=== PATIENT | female | born 1995 | race Two or more races ===

== ENCOUNTER 2024-09-08 19:26 | Observation (INO) | payer MEDICAID, OTHER ==
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
== END 2024-09-08 21:20 | disposition home or self-care (01) ==
LOC: LDRP 19:26
PROVIDERS: ADMIT Obstetrics & Gynecology; ATTEND Obstetrics & Gynecology
DX: O26.893 Other specified pregnancy related conditions, third trimester (principal); R10.9 Unspecified abdominal pain; Z3A.29 29 weeks gestation of pregnancy; Z98.890 Other specified postprocedural states; Z79.899 Other long term (current) drug therapy; V43.52XA Car driver injured in collision with other type car in traffic accident, initial encounter; Y92.410 Unspecified street and highway as the place of occurrence of the external cause; Y93.89 Activity, other specified; Y99.8 Other external cause status
CPT/HCPCS: 76805; 76817; 81002; 94760; G0378

== ENCOUNTER 2024-10-20 06:30 | Observation (INO) | payer MEDICAID ==
--- NOTE | 2024-10-20 16:03 | DVH ---
BIOPHYSICAL PROFILE HISTORY: GDM Comparison Study: None TECHNIQUE: Multiple real-time grayscale sonographic images through the gravid uterus of the fetus wi th duplex Doppler color flow and M-mode spectral analysis FINDINGS: BIOPHYSICAL PROFILE: breathing score: 2 movement score: 2 tone score: 2 AYE: 13.9 cm. Total score: 8 Single live fetus in cephalic presentation. heart rate 142 beats per minute. Unremarkable placenta without previa or abruption IMPRESSION: 1. Biophysical profile score: 8/ 8, normal
[2024-10-20] MEDS ORDERED: PREN-129 OR (16:11)
--- NOTE | 2024-10-20 16:34 | DVHDS2 ---
Physician Discharge Progress N Final Diagnosis: testing for GDM, A1 Operations or Procedures: Operations or Procedures 29yo IUP@35.5wks, pt reports eating cake before coming in and was just diagnosed with GDM, A1 VSS NST reactive RN discussed appropriate GDM diet with pt. FKC/PTL precautions reviewed. Dr. Vasques consulted, agrees with POC. Laboratory Tests Test 10/20/24 15:46 Range/Units POC Glucose 146 H 70-106 mg/dl Condition on Discharge: Stable Disposition: Home Discharge Instructions: Diet: Consistent carbohydrate Activity: No Restrictions, As Tolerated Follow Up/Referral: Weekly NST/BPP Medications: see med list Follow Up Care: Specialist: f/u in 1 wk Discharge Statement: "Patient was advised to return to the ER or call 911 if any headaches, dizziness, shortness of breath, chest pain, abdominal pain, bleeding, fevers, or worsening of medical condition. Patient was counseled about treatment plan, medications, possible side effects, patient�verbalized understanding. All questions were answered to the best of my ability. This discharge took greater then 30 minutes in planning, reviewing documentation, counseling the patient, and discussing with other team members." Visit Coding OBGYN Date of Service: October 20, 2024 Billing Provider: KIM DIAZ CNM DIRECTOR OF PRODUCT MANAGEMENT Common Visit Codes: [id number] OBS CARE (HIGH) KIM DIAZ CNM October 20, 2024 16:34
== END 2024-10-20 16:30 | disposition home or self-care (01) ==
LOC: LDRP 14:58
PROVIDERS: ADMIT Obstetrics & Gynecology; ATTEND Obstetrics & Gynecology
DX: O24.419 Gestational diabetes mellitus in pregnancy, unspecified control (principal); Z3A.35 35 weeks gestation of pregnancy; Z91.040 Latex allergy status
CPT/HCPCS: 59025; 76819; 81002; 82948; 82962; 94760; G0378

== ENCOUNTER 2024-11-10 13:52 | Observation (INO) | payer MEDICAID ==
[~2024-11-10] VITALS: Ht 149.9 cm; Wt 83.0 kg
[~2024-11-10 13:52] MED LIST: PREN-129 OR
--- NOTE | 2024-11-10 15:05 | DVH ---
BIOPHYSICAL PROFILE HISTORY: GDMA1 TECHNIQUE: Multiple transabdominal real-time grayscale sonographic images through the gravid uterus of the fetus with duplex Doppler color flow and M-mode spectral analysis FINDINGS: BIOPHYSICAL PROFILE: breathing score: 2 movement score: 2 tone score: 2 Quantitative AYE score: 2 (AYE: 11.06 Cm.) Total score: 8/8 The cervix obscured by head Single live fetus in cephalic presentation. heart rate 140 beats per minute. Anterior Grade 2 placenta without previa or abruption Single live fetus at 38 weeks 5 days Biophysical profile score 8/8 corresponding to an ADRIÁN of 11/19/2024 Estimated weight not calculated g IMPRESSION: 1. Biophysical profile score: 8/8
--- NOTE | 2024-11-12 22:03 | DVHDS2 ---
Physician Discharge Progress N Final Diagnosis: gdm 38wks Operations or Procedures: Operations or Procedures nst reactive reviwed,sono Condition on Discharge: Good Disposition: Home Discharge Instructions: Diet: Consistent carbohydrate Activity: Light activity Medications: na Follow Up Care: Specialist: 1w Discharge Statement: "Patient was advised to return to the ER or call 911 if any headaches, dizziness, shortness of breath, chest pain, abdominal pain, bleeding, fevers, or worsening of medical condition. Patient was counseled about treatment plan, medications, possible side effects, patientverbalized understanding. All questions were answered to the best of my ability. This discharge took greater then 30 minutes in planning, reviewing documenta tion, counseling the patient, and discussing with other team members." Visit Coding OBGYN Date of Service: November 10, 2024 Billing Provider: ARISTIDES MENCHACA DO ANTIQUE CLOCKS REPAIRER Common Visit Codes: [id number] OBS CARE (HIGH) ANTIQUE CLOCKS REPAIRER Procedure Codes: 44739-11- NON-STRESS TEST ARISTIDES MENCHACA DO November 12, 2024 22:03
== END 2024-11-10 15:31 | disposition home or self-care (01) ==
LOC: LDRP 13:52 → UNDOADMOB 13:52 → LDRP 14:05
PROVIDERS: ADMIT Obstetrics & Gynecology; ATTEND Obstetrics & Gynecology
DX: O24.419 Gestational diabetes mellitus in pregnancy, unspecified control (principal); Z3A.38 38 weeks gestation of pregnancy; Z98.890 Other specified postprocedural states; Z79.899 Other long term (current) drug therapy
CPT/HCPCS: 59025; 76819; 81002; 82948; 82962; 94760; G0378

== ENCOUNTER 2024-11-16 14:00 | Inpatient (IN) | payer MEDICAID ==
[~2024-11-16] VITALS: Ht 149.9 cm; Wt 71.7 kg
[2024-11-16] MEDS ORDERED: LACTATED RINGER'S 1,000 ML IV SCH (14:45)
[2024-11-16] MEDS ORDERED: BUTORPHANOL TARTRATE 2 MG/1 ML VIAL IV PRN ×2 (14:45)
[2024-11-16] MEDS ORDERED: LIDOCAINE 2%HCL (LOCAL ANESTH.) INJ 20ML MDV IJ PRN (14:45)
[2024-11-16 15:23] LABS: Basophils # (auto) 0 10 ^3/uL (0-0.2); Basophils % (auto) 0.1 % (0.0-2.0); Eosinophils # (auto) 0 10 ^3/uL (0-0.8); Eosinophils % (auto) 0.2 % (0.0-7.0); Hematocrit 44.2 % (36.0-46.0); Hemoglobin 15.3 g/dL (12.2-16.2); Lymphocytes # (auto) 1.6 10 ^3/uL (0.4-5.4); Lymphocytes % (auto) 15.8 % (10.0-50.0); Mean Corpuscular Hemoglobin 31.7 pg (28.0-32.0); Mean Corpuscular Hgb Conc. 34.5 g/dL (32.0-36.0); Mean Corpuscular Volume 91.8 fL (80.0-100.0); Monocytes # (auto) 0.3 10 ^3/uL (0-1.3); Monocytes % (auto) 3.2 % (0.0-12.0); Neutrophils % (auto) 80.7 % (37.0-80.0); Platelet Count (auto) 152 10^3/uL (140-450); Red Blood Cells 4.82 10^6/uL (4.0-5.20); Red Cell Distribution Width 14.3 % (11.8-14.3); White Blood Cell 9.9 10^3/uL (4.4-10.8)
[2024-11-16 15:39] LABS: Alanine Aminotransferase 16 U/L (7-40); Albumin 4.5 g/dL (3.2-4.8); Anion Gap 10 (5-15); Aspartate Aminotransferase 25 U/L (13-40); BUN/Creatinine Ratio 14.8 (10.0-20.0); Bilirubin, Total 0.4 mg/dL (0.2-1.0); Calcium 9.4 mg/dL (8.7-10.4); Carbon Dioxide 21 mmol/L (20-31); Potassium 3.8 mmol/L (3.5-5.1); Sodium 138 mmol/L (136-145); Total Protein 7.3 g/dL (5.7-8.2)
[2024-11-16 15:43] LABS: Alkaline Phosphatase 143 U/L (46-116); Blood Urea Nitrogen 8 mg/dL (9-23); Chloride 107 mmol/L (98-107); Glucose 72 mg/dL (74-106)
[2024-11-16 15:58] LABS: INR 0.9 (0.9-1.15); Partial Thromboplastin Time 27.2 SEC (24.5-34.5); Prothrombin Time 9.6 sec (9.3-11.8)
[2024-11-16] MEDS ORDERED: LACT. RINGERS/OXYTOCIN 20UNITS 500 ML IV ONE ×2 (16:15→16:45)
[2024-11-16 16:27] LABS: Urine Bacteria FEW /hpf (None Seen); Urine Blood 2+ /uL (Negative); Urine Clarity Turbid (Clear); Urine Color Light-Yellow (Yellow); Urine Mucus FEW (None Seen); Urine Protein, UAD TRACE (Negative); Urine Specific Gravity 1.021 (1.001-1.035); Urine Squamous Epithelial Cell FEW /hpf (<5); Urine Urobilinogen Normal (Negative); Urine WBC 3 /HPF (0-5); Urine pH 5.5 (5.0-9.0)
[2024-11-16] MEDS: miSOPROStol 50 MCG per PRE-CUT 1/2 TAB PO PRN (16:29)
[2024-11-16] MEDS: PHISODERM TOP SOLN 240ML BTL TOP PRN (16:29)
[2024-11-16] MEDS: WITCH HAZEL-GLYCERIN PAD TOP PRN (16:29)
[2024-11-16] MEDS: DERMOPLAST 60ML BOTTLE TOP PRN (16:29)
[2024-11-16 16:37] LABS: Amphetamine Screen, Urine Neg (NEGATIVE); Barbiturate Scree,Urine Neg (NEGATIVE); Benzodiazephine Screen, Urine Neg (NEGATIVE); Cocaine Screen, Urine Neg (NEGATIVE)
[2024-11-16 16:38] LABS: Cannabinoid Screen, Urine Neg (NEGATIVE); Opiate Scree,Urine Neg (NEGATIVE); Phencyclidine Screen, Urine Neg (NEGATIVE)
--- NOTE | 2024-11-16 17:00 | DVHHP2 ---
OB CC & HPI Date Date of Admission: Nov 16, 2024 Patient Identification: : 1 Para: 0 EDC: Nov 19, 2024 EGA: 39.4 wks Chief Complaints: Reason for admission: induction of labor Indication for induction: other (GDMA1) Admission Nurse Assessment Rev: Yes History of Present Complaints 29yo IUP@39.4wks presents to L&D for IOL for GDMA1. Denies UCs/LOF/VB/CAST/vision changes/RUQ pain. Endorses +FM. PNC: Routine PNC at [facility] with Dr Vasques, adequate visits, PNC complicated by GDMA1. GTT elevated, dating based on LMP c/w 15wk sono, GBS negative. Past Medical History Cardiac: No pertinent Hx Pulmonary: No pertinent Hx Central Nervous System: No pertinent Hx GI: No pertinent Hx Hemotology/Oncology: No pertinent Hx Hepatobiliary: No pertinent Hx Psychiatric: No pertinent Hx Musculoskeletal: No pertinent Hx Rheumotologic: No pertinent Hx Infectious Disease: No peritnent Hx ENT: No pertinent Hx Renal/: No pertinent Hx Endocrine: No pertinent Hx Dermatology: No pertinent Hx Past Surgical History: No pertinent Hx OB History OB History Care: Good Care Ultrasounds: Normal mid trimester US Obstetrical Complications: Gestational Diabetes (GDMA1) Medical Complications: None Allergies: Coded Allergies: NO KNOWN ALLERGIES (Unverified , 11/16/24) Home Meds Reported Medications Vit W/ Ferrous Fumara () Tab, 1 OR DAILY, TAB 10/20/24 Current Medications Current Medications Medications (Trade) Dose Ordered Sig/Carlo Route PRN Reason Start Time Stop Time Status Last Admin Lactated Ringer's 1,000 ml @ 125 mls/hr Q8H IV 11/16/24 14:45 Witch Rosa (Tucks) 1 pad PRN PRN TOP PERINEAL AREA DISCOMFORT 11/16/24 14:45 11/16/24 16:29 Sodium Lauryl Sulfate (Phisoderm) 240 ml PRN PRN TOP PERINEAL AREA DISCOMFORT 11/16/24 14:45 11/16/24 16:29 Benzocaine (Dermoplast) 1 applic PRN PRN TOP PERINEAL AREA DISCOMFORT 11/16/24 14:45 11/16/24 16:29 Butorphanol Tartrate (Stadol Injection) 1 mg Q4HPRN PRN IV MODERATE PAIN (4-6 PAIN SCALE) 11/16/24 14:45 Butorphanol Tartrate (Stadol Injection) 2 mg Q4HPRN PRN IV SEVERE PAIN (7-10 PAIN SCALE) 11/16/24 14:45 Lidocaine HCl (Xylocaine) 20 ml ONCE PRN IJ PERINEAL AREA DISCOMFORT 11/16/24 14:45 Misoprostol (Cytotec) 50 mcg Q4HPRN PRN PO CERVICAL RIPENING 11/16/24 16:15 11/16/24 16:29 Family & Social History Family/Social History Past Family/Social History: Denies Blood Type: B+ Rubella: not immune RPR/VDRL: Negative GBS Status: Negative HBsAG: Negative Review of Systems Constitutional: No symptom reported Ears, Nose, & Throat: No symptom reported Eyes: No symptom reported Pulmonary/Respiratory: No symptom reported Cardiovascular: No symptom reported Gastrointestinal: No symptom reported Genitourinary: No symptom reported Musculoskeletal: No symptom reported Skin: No symptom reported Psychiatric: No symptom reported Endocrine: No symptom reported Hemotologic/Lymphatic: No symptom reported OB Admission Exam Physical Exam Vitals: VSS, see chart EFW in office today: 8lbs 1oz, vtx HEENT: TMs Normal, Fontanelles Normal, Nasal Mucosa Normal, Eyes non-injected, Oropharynx Normal, PERRLA, Moist Membranes, EOMI Heart: Rhythm Normal Lungs: Clear Abdomen: Gravid Extremities: Normal Reflexes: Normal Pelvic Exam: Done by RN Cervical Dilatation: other (1.5 cm) Effacement: 50% Station: -3 Membranes: Intact Heart Rate: 130's Accelerations: Accelerations Present Decelerations: No Decelerations Short Term Variability: Present Elder Assistant Variability: Average (6-25) Contractions on Admission: >10 Minutes Apart (occasional UCs) Intensity: Mild OB Plan Plan Admitting Diagnosis: 29yo IUP@39.4wks Induction of Labor for GDMA1 Category I EFM Intact Membranes GBS negative CNM is co-managing care with Dr. Vasques. Plan: Induction Induction Methd: Misoprostol protocol Other Plan: Admit to L&D Informed consent obtained Discussed risks, benefits, alternatives of IOL for GDMA1 with pt. Pt consents to IOL with PO cytotec. monitoring per order Routine labs ordered Pain mgmt PRN Frequent position changes in and out of bed encouraged Limit SVE unless necessary Intrauterine resuscitation PRN Anticipate CNM will consult with Dr. Vasques PRN Visit Coding OBGYN Date of Service: Nov 16, 2024 Billing Provider: KIM DIAZ CNM LEGAL DOCUMENT ASSISTANT Common Visit Codes: [id number] INP/OBS CARE (HIGH) LEGAL DOCUMENT ASSISTANT Procedure Codes: 39760-78- NON-STRESS TEST JOSEPH SWEET STUDENTMDW Nov 16, 2024 17:00
--- NOTE | 2024-11-16 21:57 | DVHPN2 ---
CNM Labor Progress Note Date and Time Seen Date Seen: Nov 16, 2024 Time Seen: 21:30 Subjective Patient reports: No new complaints Subjective Comment Pt comfortably sitting up in bed Objective Vital Signs VSS, see chart Monitoring Method Monitoring Method: External Heart Rate Heart Rate Baseline: 135 Heart Rate Variability: Moderate Presence of FHR Accelerations: Yes Presence of FHR Decelerations: No Are all 5 Components of the FH: Yes Contractions Contractions Frequency: Other (Q 1-6 min) Duration of Contraction: 80 Contractions Intensity: Mild Contractions Resting Tone: Relaxed Membranes Membranes: Intact Vaginal Exam Vag Exam Deferred: No Vaginal Exam Dilation: 1 Vaginal Exam Effacement: 50 Vaginal Exam Station: -3 Vaginal Exam Presentation: VTX Vaginal Exam Show: None Medications Medications - Pitocin: No Medications - Pain Medications: PRN Medication - Epidural: No Medication - Other s/p Cytotec PO x1 dose Lab Results Lab Results Current Medications Medications (Trade) Dose Ordered Sig/Carlo Start Time Stop Time Status Last Admin Dose Admin Lactated Ringer's 1,000 ml @ 125 mls/hr Q8H 11/16/24 14:45 Witch Rosa (Tucks) 1 pad PRN PRN 11/16/24 14:45 11/16/24 16:29 1 PAD Sodium Lauryl Sulfate (Phisoderm) 240 ml PRN PRN 11/16/24 14:45 11/16/24 16:29 240 ML Benzocaine (Dermoplast) 1 applic PRN PRN 11/16/24 14:45 11/16/24 16:29 1 APPLIC Butorphanol Tartrate (Stadol Injection) 1 mg Q4HPRN PRN 11/16/24 14:45 Butorphanol Tartrate (Stadol Injection) 2 mg Q4HPRN PRN 11/16/24 14:45 Lidocaine HCl (Xylocaine) 20 ml ONCE PRN 11/16/24 14:45 Oxytocin 500 ml @ 999 mls/hr Q31M ONCE 11/16/24 16:15 11/16/24 16:45 DC Oxytocin 500 ml @ 125 mls/hr Q4H ONCE 11/16/24 16:45 11/16/24 20:44 DC Misoprostol (Cytotec) 50 mcg Q4HPRN PRN 11/16/24 16:15 11/16/24 21:34 50 MCG Laboratory Tests Test 11/16/24 21:07 11/16/24 15:00 11/16/24 14:30 Range/Units POC Glucose 73 70-106 mg/dl White Blood Count 9.9 4.4-10.8 10^3/uL Red Blood Count 4.82 4.0-5.20 10^6/uL Hemoglobin 15.3 12.2-16.2 g/dL Hematocrit 44.2 36.0-46.0 % Mean Corpuscular Volume 91.8 80.0-100.0 fL Mean Corpuscular Hemoglobin 31.7 28.0-32.0 pg Mean Corpuscular Hemoglobin Concent 34.5 32.0-36.0 g/dL Red Cell Distribution Width 14.3 11.8-14.3 % Platelet Count 152 140-450 10^3/uL Mean Platelet Volume 9.8 6.9-10.8 fL Neutrophils (%) (Auto) 80.7 H 37.0-80.0 % Lymphocytes (%) (Auto) 15.8 10.0-50.0 % Monocytes (%) (Auto) 3.2 0.0-12.0 % Eosinophils (%) (Auto) 0.2 0.0-7.0 % Basophils (%) (Auto) 0.1 0.0-2.0 % Neutrophils # (Auto) 8.0 1.6-8.6 10 ^3/uL Lymphocytes # (Auto) 1.6 0.4-5.4 10 ^3/uL Monocytes # (Auto) 0.3 0-1.3 10 ^3/uL Eosinophils # (Auto) 0 0-0.8 10 ^3/uL Basophils # (Auto) 0 0-0.2 10 ^3/uL Nucleated Red Blood Cells 0.0 % Prothrombin Time 9.6 9.3-11.8 sec Prothrombin Time INR 0.90 0.9-1.15 Activated Partial Thromboplast Time 27.2 24.5-34.5 SEC Sodium Level 138 136-145 mmol/L Potassium Level 3.8 3.5-5.1 mmol/L Chloride Level 107 98-107 mmol/L Carbon Dioxide Level 21 20-31 mmol/L Anion Gap 10 5-15 Blood Urea Nitrogen 8 L 9-23 mg/dL Creatinine 0.54 L 0.550-1.02 mg/dL Glomerular Filtration Rate Calc 129 >90 mL/min BUN/Creatinine Ratio 14.8 10.0-20.0 Serum Glucose 72 L 74-106 mg/dL Calcium Level 9.4 8.7-10.4 mg/dL Total Bilirubin 0.4 0.2-1.0 mg/dL Aspartate Amino Transferase (AST) 25 13-40 U/L Alanine Aminotransferase (ALT) 16 7-40 U/L Alkaline Phosphatase 143 H 46-116 U/L Total Protein 7.3 5.7-8.2 g/dL Albumin 4.5 3.2-4.8 g/dL Treponema pallidum Antibody Non-reactive Negative Hepatitis C Antibody Negative Negative Urine Color Light-yellow Yellow Urine Clarity Turbid H Clear Urine pH 5.5 5.0-9.0 Urine Specific [place] 1.021 1.001-1.035 Urine Protein Trace H Negative Urine Ketones Trace Negative Urine Blood 2+ H Negative /uL Urine Nitrite Negative Negative Urine Bilirubin Negative Negative Urine Urobilinogen Normal Negative mg/dL Urine Leukocyte Esterase Negative Negative /uL Urine RBC 1 0 - 4 /hpf Urine Microscopic WBC 3 0-5 /HPF Urine Squamous Epithelial Cells Few <5 /hpf Urine Bacteria Few H None Seen /hpf Urine Mucus Few None Seen Urine Glucose Normal Normal mg/dL Urine Opiates Screen Neg NEGATIVE Urine Fentanyl Screen Neg NEGATIVE Urine Barbiturates Screen Neg NEGATIVE Urine Phencyclidine Screen Neg NEGATIVE Urine Amphetamines Screen Neg NEGATIVE Urine Benzodiazepines Screen Neg NEGATIVE Urine Cocaine Screen Neg NEGATIVE Urine Cannabinoids Screen Neg NEGATIVE Assessment Assessment 29yo IUP@39.4wks Induction of Labor for GDMA1 Category I EFM Intact Membranes GBS negative Plan Plan Continue with Cytotec PO monitoring per order Saline lock IV Pain mgmt PRN Frequent position changes in and out of bed encouraged Limit SVE unless necessary Intrauterine resuscitation PRN Anticipate CNM will consult with Dr. Vasques PRN Plan discussed with: Patient, Other (Family) Visit Coding OBGYN Date of Service: Nov 16, 2024 Billing Provider: KIM DIAZ CNM FOOD AND BEVERAGE DIRECTOR Common Visit Codes: [id number] INP/OBS CARE (HIGH) FOOD AND BEVERAGE DIRECTOR Procedure Codes: 74950-12- NON-STRESS TEST JOSEPH SWEET STUDENTMDW Nov 16, 2024 21:56
--- NOTE | 2024-11-17 02:08 | DVHPN2 ---
[facility] Labor Progress Note Date and Time Seen Date Seen: Nov 17, 2024 Time Seen: 02:05 Subjective Patient reports: No new complaints Objective Vital Signs VSS, see chart Monitoring Method Monitoring Method: External Heart Rate Heart Rate Baseline: 130 Heart Rate Variability: Moderate Presence of FHR Accelerations: Yes Presence of FHR Decelerations: No Changes in Trends of Patterns: No Are all 5 Components of the FH: Yes Contractions Contractions Frequency: Occasional Duration of Contraction: 80 Contractions Intensity: Mild Contractions Resting Tone: Relaxed Membranes Membranes: Intact Vaginal Exam Vag Exam Deferred: No (1.5/50/-3 by RN) Medications Medications - Pitocin: No Medications - Pain Medications: PRN Medication - Epidural: No Medication - Other s/p 2 doses of PO cytotec Lab Results Lab Results Current Medications Medications (Trade) Dose Ordered Sig/Carlo Start Time Stop Time Status Last Admin Dose Admin Lactated Ringer's 1,000 ml @ 125 mls/hr Q8H 11/16/24 14:45 Witch Rosa (Tucks) 1 pad PRN PRN 11/16/24 14:45 11/16/24 16:29 1 PAD Sodium Lauryl Sulfate (Phisoderm) 240 ml PRN PRN 11/16/24 14:45 11/16/24 16:29 240 ML Benzocaine (Dermoplast) 1 applic PRN PRN 11/16/24 14:45 11/16/24 16:29 1 APPLIC Butorphanol Tartrate (Stadol Injection) 1 mg Q4HPRN PRN 11/16/24 14:45 Butorphanol Tartrate (Stadol Injection) 2 mg Q4HPRN PRN 11/16/24 14:45 Lidocaine HCl (Xylocaine) 20 ml ONCE PRN 11/16/24 14:45 Oxytocin 500 ml @ 999 mls/hr Q31M ONCE 11/16/24 16:15 11/16/24 16:45 DC Oxytocin 500 ml @ 125 mls/hr Q4H ONCE 11/16/24 16:45 11/16/24 20:44 DC Misoprostol (Cytotec) 50 mcg Q4HPRN PRN 11/16/24 16:15 11/17/24 01:34 50 MCG Laboratory Tests Test 11/17/24 01:35 11/16/24 15:00 11/16/24 14:30 Range/Units POC Glucose 111 H 70-106 mg/dl White Blood Count 9.9 4.4-10.8 10^3/uL Red Blood Count 4.82 4.0-5.20 10^6/uL Hemoglobin 15.3 12.2-16.2 g/dL Hematocrit 44.2 36.0-46.0 % Mean Corpuscular Volume 91.8 80.0-100.0 fL Mean Corpuscular Hemoglobin 31.7 28.0-32.0 pg Mean Corpuscular Hemoglobin Concent 34.5 32.0-36.0 g/dL Red Cell Distribution Width 14.3 11.8-14.3 % Platelet Count 152 140-450 10^3/uL Mean Platelet Volume 9.8 6.9-10.8 fL Neutrophils (%) (Auto) 80.7 H 37.0-80.0 % Lymphocytes (%) (Auto) 15.8 10.0-50.0 % Monocytes (%) (Auto) 3.2 0.0-12.0 % Eosinophils (%) (Auto) 0.2 0.0-7.0 % Basophils (%) (Auto) 0.1 0.0-2.0 % Neutrophils # (Auto) 8.0 1.6-8.6 10 ^3/uL Lymphocytes # (Auto) 1.6 0.4-5.4 10 ^3/uL Monocytes # (Auto) 0.3 0-1.3 10 ^3/uL Eosinophils # (Auto) 0 0-0.8 10 ^3/uL Basophils # (Auto) 0 0-0.2 10 ^3/uL Nucleated Red Blood Cells 0.0 % Prothrombin Time 9.6 9.3-11.8 sec Prothrombin Time INR 0.90 0.9-1.15 Activated Partial Thromboplast Time 27.2 24.5-34.5 SEC Sodium Level 138 136-145 mmol/L Potassium Level 3.8 3.5-5.1 mmol/L Chloride Level 107 98-107 mmol/L Carbon Dioxide Level 21 20-31 mmol/L Anion Gap 10 5-15 Blood Urea Nitrogen 8 L 9-23 mg/dL Creatinine 0.54 L 0.550-1.02 mg/dL Glomerular Filtration Rate Calc 129 >90 mL/min BUN/Creatinine Ratio 14.8 10.0-20.0 Serum Glucose 72 L 74-106 mg/dL Calcium Level 9.4 8.7-10.4 mg/dL Total Bilirubin 0.4 0.2-1.0 mg/dL Aspartate Amino Transferase (AST) 25 13-40 U/L Alanine Aminotransferase (ALT) 16 7-40 U/L Alkaline Phosphatase 143 H 46-116 U/L Total Protein 7.3 5.7-8.2 g/dL Albumin 4.5 3.2-4.8 g/dL Treponema pallidum Antibody Non-reactive Negative Hepatitis C Antibody Negative Negative Urine Color Light-yellow Yellow Urine Clarity Turbid H Clear Urine pH 5.5 5.0-9.0 Urine Specific [place] 1.021 1.001-1.035 Urine Protein Trace H Negative Urine Ketones Trace Negative Urine Blood 2+ H Negative /uL Urine Nitrite Negative Negative Urine Bilirubin Negative Negative Urine Urobilinogen Normal Negative mg/dL Urine Leukocyte Esterase Negative Negative /uL Urine RBC 1 0 - 4 /hpf Urine Microscopic WBC 3 0-5 /HPF Urine Squamous Epithelial Cells Few <5 /hpf Urine Bacteria Few H None Seen /hpf Urine Mucus Few None Seen Urine Glucose Normal Normal mg/dL Urine Opiates Screen Neg NEGATIVE Urine Fentanyl Screen Neg NEGATIVE Urine Barbiturates Screen Neg NEGATIVE Urine Phencyclidine Screen Neg NEGATIVE Urine Amphetamines Screen Neg NEGATIVE Urine Benzodiazepines Screen Neg NEGATIVE Urine Cocaine Screen Neg NEGATIVE Urine Cannabinoids Screen Neg NEGATIVE Assessment Assessment 29yo IUP@39.5wks Induction of Labor for GDMA1 Category I EFM Intact Membranes GBS negative Plan Plan Continue with Cytotec PO monitoring per order Saline lock IV Continue blood glucose checks q4 hrs Pain mgmt PRN Frequent position changes in and out of bed encouraged Limit SVE unless necessary Intrauterine resuscitation PRN Anticipate CNMarium will consult with Dr. Vasques PRN Plan discussed with: Patient, Other (family) Visit Coding OBGYN Date of Service: Nov 17, 2024 Billing Provider: KIM DIAZ CNM KITCHEN MANAGER Common Visit Codes: [id number] INP/OBS CARE(HIGH) KIM DIAZ CNM Nov 17, 2024 02:07
--- NOTE | 2024-11-17 09:16 | DVHPN2 ---
Chief Complaints Patient reports: No new complaints Nursing reports: No new complaints Objective Medications Current Medications Medications (Trade) Dose Ordered Sig/Carlo Route PRN Reason Start Time Stop Time Status Last Admin Benzocaine (Dermoplast) 1 applic PRN PRN TOP PERINEAL AREA DISCOMFORT 11/16/24 14:45 11/16/24 16:29 Butorphanol Tartrate (Stadol Injection) 1 mg Q4HPRN PRN IV MODERATE PAIN (4-6 PAIN SCALE) 11/16/24 14:45 Butorphanol Tartrate (Stadol Injection) 2 mg Q4HPRN PRN IV SEVERE PAIN (7-10 PAIN SCALE) 11/16/24 14:45 Lactated Ringer's 1,000 ml @ 125 mls/hr Q8H IV 11/16/24 14:45 Lidocaine HCl (Xylocaine) 20 ml ONCE PRN IJ PERINEAL AREA DISCOMFORT 11/16/24 14:45 Misoprostol (Cytotec) 50 mcg Q4HPRN PRN PO CERVICAL RIPENING 11/16/24 16:15 11/17/24 05:53 Sodium Lauryl Sulfate (Phisoderm) 240 ml PRN PRN TOP PERINEAL AREA DISCOMFORT 11/16/24 14:45 11/16/24 16:29 Witch Rosa (Tucks) 1 pad PRN PRN TOP PERINEAL AREA DISCOMFORT 11/16/24 14:45 11/16/24 16:29 Others ve-1cm/50/-3 Studies Laboratory Tests 11/16/24 15:00 Test 11/16/24 15:00 Range/Units Serum Glucose 72 L 74-106 mg/dL Ass/Plan Assessment iol for gdm Plan option of pcs d/w pt ,possib of macrosmia risks and compl assoc with shoulder dystocia d/w pt all option s d/w pt .pt wishes to proceed with trial of labor Visit Coding OBGYN Date of Service: Nov 17, 2024 Billing Provider: ARISTIDES MENCHACA DO HOOKER INSPECTOR Common Visit Codes: [id number] INP/OBS CARE(HIGH) HOOKER INSPECTOR Procedure Codes: 57431-30- NON-STRESS TEST ARISTIDES MENCHACA DO Nov 17, 2024 09:16
[2024-11-17] MEDS ORDERED: DINOPROSTONE 10MG VAG SUPP PV ONE (15:30)
--- NOTE | 2024-11-17 16:08 | DVHPN2 ---
CNM Labor Progress Note Date and Time Seen Date Seen: Nov 17, 2024 Time Seen: 15:30 Subjective Patient reports: No new complaints Subjective Comment Pt resting comfortably in bed Objective Vital Signs VSS, see chart Monitoring Method Monitoring Method: External Heart Rate Heart Rate Baseline: 145 Heart Rate Variability: Moderate Presence of FHR Accelerations: Yes Presence of FHR Decelerations: No Are all 5 Components of the FH: Yes Contractions Contractions Frequency: Other (Q 4 min) Duration of Contraction: 80 Contractions Intensity: Mild Contractions Resting Tone: Relaxed Membranes Membranes: Intact Vaginal Exam Vag Exam Deferred: Yes (sve by RN: 1.5/50/-3) Vaginal Exam Presentation: VTX Medications Medications - Pitocin: No Medications - Pain Medications: PRN Medication - Epidural: No Medication - Other s/p Cytotec PO x 6 doses Lab Results Lab Results Current Medications Medications (Trade) Dose Ordered Sig/Carlo Start Time Stop Time Status Last Admin Dose Admin Lactated Ringer's 1,000 ml @ 125 mls/hr Q8H 11/16/24 14:45 Witch Rosa (Tucks) 1 pad PRN PRN 11/16/24 14:45 11/16/24 16:29 1 PAD Sodium Lauryl Sulfate (Phisoderm) 240 ml PRN PRN 11/16/24 14:45 11/16/24 16:29 240 ML Benzocaine (Dermoplast) 1 applic PRN PRN 11/16/24 14:45 11/16/24 16:29 1 APPLIC Butorphanol Tartrate (Stadol Injection) 1 mg Q4HPRN PRN 11/16/24 14:45 Butorphanol Tartrate (Stadol Injection) 2 mg Q4HPRN PRN 11/16/24 14:45 Lidocaine HCl (Xylocaine) 20 ml ONCE PRN 11/16/24 14:45 Oxytocin 500 ml @ 999 mls/hr Q31M ONCE 11/16/24 16:15 11/16/24 16:45 DC Oxytocin 500 ml @ 125 mls/hr Q4H ONCE 11/16/24 16:45 11/16/24 20:44 DC Misoprostol (Cytotec) 50 mcg Q4HPRN PRN 11/16/24 16:15 11/17/24 13:58 50 MCG Dinoprostone (Cervidil Suppository) 1 supp ONCE ONCE 11/17/24 15:30 11/17/24 15:31 DC Laboratory Tests Test 11/17/24 13:57 11/16/24 15:00 11/16/24 14:30 Range/Units POC Glucose 137 H 70-106 mg/dl White Blood Count 9.9 4.4-10.8 10^3/uL Red Blood Count 4.82 4.0-5.20 10^6/uL Hemoglobin 15.3 12.2-16.2 g/dL Hematocrit 44.2 36.0-46.0 % Mean Corpuscular Volume 91.8 80.0-100.0 fL Mean Corpuscular Hemoglobin 31.7 28.0-32.0 pg Mean Corpuscular Hemoglobin Concent 34.5 32.0-36.0 g/dL Red Cell Distribution Width 14.3 11.8-14.3 % Platelet Count 152 140-450 10^3/uL Mean Platelet Volume 9.8 6.9-10.8 fL Neutrophils (%) (Auto) 80.7 H 37.0-80.0 % Lymphocytes (%) (Auto) 15.8 10.0-50.0 % Monocytes (%) (Auto) 3.2 0.0-12.0 % Eosinophils (%) (Auto) 0.2 0.0-7.0 % Basophils (%) (Auto) 0.1 0.0-2.0 % Neutrophils # (Auto) 8.0 1.6-8.6 10 ^3/uL Lymphocytes # (Auto) 1.6 0.4-5.4 10 ^3/uL Monocytes # (Auto) 0.3 0-1.3 10 ^3/uL Eosinophils # (Auto) 0 0-0.8 10 ^3/uL Basophils # (Auto) 0 0-0.2 10 ^3/uL Nucleated Red Blood Cells 0.0 % Prothrombin Time 9.6 9.3-11.8 sec Prothrombin Time INR 0.90 0.9-1.15 Activated Partial Thromboplast Time 27.2 24.5-34.5 SEC Sodium Level 138 136-145 mmol/L Potassium Level 3.8 3.5-5.1 mmol/L Chloride Level 107 98-107 mmol/L Carbon Dioxide Level 21 20-31 mmol/L Anion Gap 10 5-15 Blood Urea Nitrogen 8 L 9-23 mg/dL Creatinine 0.54 L 0.550-1.02 mg/dL Glomerular Filtration Rate Calc 129 >90 mL/min BUN/Creatinine Ratio 14.8 10.0-20.0 Serum Glucose 72 L 74-106 mg/dL Calcium Level 9.4 8.7-10.4 mg/dL Total Bilirubin 0.4 0.2-1.0 mg/dL Aspartate Amino Transferase (AST) 25 13-40 U/L Alanine Aminotransferase (ALT) 16 7-40 U/L Alkaline Phosphatase 143 H 46-116 U/L Total Protein 7.3 5.7-8.2 g/dL Albumin 4.5 3.2-4.8 g/dL Treponema pallidum Antibody Non-reactive Negative Hepatitis C Antibody Negative Negative Urine Color Light-yellow Yellow Urine Clarity Turbid H Clear Urine pH 5.5 5.0-9.0 Urine Specific [place] 1.021 1.001-1.035 Urine Protein Trace H Negative Urine Ketones Trace Negative Urine Blood 2+ H Negative /uL Urine Nitrite Negative Negative Urine Bilirubin Negative Negative Urine Urobilinogen Normal Negative mg/dL Urine Leukocyte Esterase Negative Negative /uL Urine RBC 1 0 - 4 /hpf Urine Microscopic WBC 3 0-5 /HPF Urine Squamous Epithelial Cells Few <5 /hpf Urine Bacteria Few H None Seen /hpf Urine Mucus Few None Seen Urine Glucose Normal Normal mg/dL Urine Opiates Screen Neg NEGATIVE Urine Fentanyl Screen Neg NEGATIVE Urine Barbiturates Screen Neg NEGATIVE Urine Phencyclidine Screen Neg NEGATIVE Urine Amphetamines Screen Neg NEGATIVE Urine Benzodiazepines Screen Neg NEGATIVE Urine Cocaine Screen Neg NEGATIVE Urine Cannabinoids Screen Neg NEGATIVE Assessment Assessment 29 yo IUP @ 39.5 wks IOL for GDMA1 Category I EFM Intact membranes GBS negative Plan Plan Dr. Vasques consulted, recommends sending pt home and returning in 2 days if NST is reactive and BPP wnl. Discussed POC with pt, pt and family agree with POC. BPP ordered. monitoring per order Plan discussed with: Patient, Other (Family) Visit Coding OBGYN Date of Service: Nov 17, 2024 Billing Provider: KIM DIAZ CNM MENAGERIE CARETAKER Common Visit Codes: [id number] INP/OBS CARE(HIGH) JOSEPH SWEET STUDENTMDW Nov 17, 2024 16:08
--- NOTE | 2024-11-17 17:40 | DVH ---
OB ULTRASOUND, LIMITED CLINICAL INDICATION: induction of labor/gdma1 TECHNIQUE: Multiple grayscale ultrasound and M-mode images were obtained of the pelvis for evaluation of intrauterine . COMPARISON: US BIOPHYSICAL PROFILE on DOS: 11/10/24, US BIOPHYSICAL PROFILE on DOS: 10/20/24 FINDINGS: A single living fetus is seen in cephalic presentation. Biophysical profile: 01/21 breathin movements: 2 tone: 2 Amniotic fluid: 2 Cervical length 2.4 cm and contains small amount of fluid. Placenta: Anterior, grade 3. Amniotic fluid: Visibly normal. AYE 18 cm. heart rate: 143 beats/min. A complete anatomic survey was not performed on this exam. IMPRESSION: 1. Biophysical profile: 01/21 2. Cervical length is 2.4 cm and contains a small amount of fluid.
--- NOTE | 2024-11-17 19:25 | DVHDS2 ---
Obstetrics Discharge Summary Obstetrics Discharge Summary Date of Admission: Nov 16, 2024 Date of Discharge: Nov 17, 2024 Reason For Admission: Induction of Labor (GDM, A1) Procedures: NST, Ultrasound Procedures: None (+FM, +BH, denies LOF/VB/CAST/vision changes/RUQ pain) Operative Complicat: None Discharge Diagnosis: False Labor/Undelivered (D/C home per Dr. Vasques's recommendation, BPP 8/8, NST reactive, f/u in 2 days) Discharge Information: Activity (miles circuit recommended), Diet (Routine), Medications (None), Instructions ( kick counts and Preeclampsia warning signs reviewed. Labor precautions given and when to return to the hospital.), Discharge to (Home), Accompanied by (family), Discarge date (11/17/24) Visit Coding OBGYN Date of Service: Nov 17, 2024 Billing Provider: KIM DIAZ CNM NEWSPAPER CARRIER Common Visit Codes: 70522-UTA/OBS DISCH DAY <30MIN NEWSPAPER CARRIER Procedure Codes: 28072-65- NON-STRESS TEST KIM DIAZ CNM Nov 17, 2024 19:25
== END 2024-11-17 19:55 | disposition home or self-care (01) | DRG 566 ==
LOC: LDRP 14:00
PROVIDERS: ADMIT Obstetrics & Gynecology; ATTEND Obstetrics & Gynecology
PROC: 3E0DXGC Introduction of Other Therapeutic Substance into Mouth and Pharynx, External Approach (ICD-10-PCS; principal; 2024-11-16)
DX: O24.410 Gestational diabetes mellitus in pregnancy, diet controlled (principal); O47.1 False labor at or after 37 completed weeks of gestation; Z3A.39 39 weeks gestation of pregnancy
CPT/HCPCS: 36415; 59025; 76817; 76819; 80053; 80307; 81001; 82948; 82962; 85025; 85610; 85730; 86780; 86803; 86850; 86900; 86901; 94762; 96360; 96361; A4344; G0378

== ENCOUNTER 2024-11-19 14:33 | Inpatient (IN) | payer MEDICAID ==
[~2024-11-19] VITALS: Ht 152.4 cm; Wt 71.7 kg
--- NOTE | 2024-11-19 16:49 | DVH ---
BIOPHYSICAL PROFILE HISTORY: GDMA1 TECHNIQUE: Multiple real-time grayscale sonographic images through the gravid uterus of the fetus wi th duplex Doppler color flow. FINDINGS: BIOPHYSICAL PROFILE: breathing score: 2 movement score: 2 tone score: 2 Quantitative AYE score: 2 Total score: 8 out of 8 Single live intrauterine . heart rate of 136 beats per minute. Cephalic lie. Placent a is anteriorly positioned AYE 13.5 cm. Please note this examination is not performed for anatomical survey. Incidental note of large hydroce les. IMPRESSION: 1. Biophysical profile score: 8 out of 8 2. Note is made of large hydroceles within the bilateral scrotal sac of the fetus. Recommend OB con sultation for further evaluation.
[2024-11-19 17:19] LABS: Basophils # (auto) 0 10 ^3/uL (0-0.2); Basophils % (auto) 0.3 % (0.0-2.0); Eosinophils # (auto) 0 10 ^3/uL (0-0.8); Hematocrit 41.8 % (36.0-46.0); Hemoglobin 14.2 g/dL (12.2-16.2); Lymphocytes # (auto) 1.3 10 ^3/uL (0.4-5.4); Lymphocytes % (auto) 9.3 % (10.0-50.0); Mean Corpuscular Hgb Conc. 33.9 g/dL (32.0-36.0); Mean Corpuscular Volume 91.3 fL (80.0-100.0); Monocytes # (auto) 0.5 10 ^3/uL (0-1.3); Monocytes % (auto) 3.2 % (0.0-12.0); Neutrophils # (auto) 12.2 10 ^3/uL (1.6-8.6); Neutrophils % (auto) 87.2 % (37.0-80.0); Platelet Count (auto) 146 10^3/uL (140-450); Red Blood Cells 4.57 10^6/uL (4.0-5.20); Red Cell Distribution Width 14.6 % (11.8-14.3)
[2024-11-19] MEDS ORDERED: fentaNYL CITRATE 100 MCG/2 ML VL ONE (17:28)
[2024-11-19] MEDS ORDERED: MORPHINE SULF PF 5 MG/10 ML VIAL ONE (17:28)
[2024-11-19] MEDS: LACTATED RINGER'S 1,000 ML IV ONE (17:29)
[2024-11-19] MEDS ORDERED: MIDAZOLAM HCL 2MG/2ML 2ml VIAL (1mg/ml) ONE (17:29)
[2024-11-19] MEDS: ceFAZolin 2 GM/D5W50ml 50 ML IV ONE (17:29)
[2024-11-19] MEDS: TETRACAINE 1% INJ 2 ML VIAL IJ ONE (17:32)
[2024-11-19 17:35] LABS: Alanine Aminotransferase 17 U/L (7-40); Albumin 4.4 g/dL (3.2-4.8); Anion Gap 12 (5-15); Aspartate Aminotransferase 26 U/L (13-40); BUN/Creatinine Ratio 9.7 (10.0-20.0); Bilirubin, Total 0.5 mg/dL (0.2-1.0); Glucose 83 mg/dL (74-106); Potassium 3.6 mmol/L (3.5-5.1); Sodium 139 mmol/L (136-145); Total Protein 7.2 g/dL (5.7-8.2)
--- NOTE | 2024-11-19 17:37 | DVHHP2 ---
OB CC & HPI Date Date of Admission: Nov 19, 2024 Patient Identification: : 1 Para: 0 EDC: Nov 19, 2024 EGA: 40WKS Chief Complaints: Reason for admission: active labor Indication for : macrosomia (DESIRES PCS) Admission Nurse Assessment Rev: No History of Present Complaints PT IS ADMITTED IN EARLY LABOR,SHE HAD FAILED INDUCTION 2 DAYS AGO.SHE HAS GDM SUSPECT MACROSOMIA .SHE HAD POOR CONTROLL WITH DMSUBSEQ PT DESIRES PCS TO AVOID COMPLICATIONS SUCH SHOULDER DYSTOCIA ,INC MORB/MORT WITH MACROSOMIA AND VAG DEL Past Medical History Cardiac: No pertinent Hx Pulmonary: No pertinent Hx Central Nervous System: No pertinent Hx GI: No pertinent Hx Hemotology/Oncology: No pertinent Hx Hepatobiliary: No pertinent Hx Psychiatric: No pertinent Hx Musculoskeletal: No pertinent Hx Rheumotologic: No pertinent Hx Infectious Disease: No peritnent Hx ENT: No pertinent Hx Renal/: No pertinent Hx Endocrine: No pertinent Hx Dermatology: No pertinent Hx Past Surgical History: No pertinent Hx OB History OB History Care: Good Care Ultrasounds: Normal mid trimester US Obstetrical Complications: Gestational Diabetes Medical Complications: None Allergies: Coded Allergies: NO KNOWN ALLERGIES (Unverified , 11/16/24) Home Meds Reported Medications Vit W/ Ferrous Fumara () Tab, 1 OR DAILY, TAB 10/20/24 Current Medications Current Medications Medications (Trade) Dose Ordered Sig/Carlo Route PRN Reason Start Time Stop Time Status Last Admin Lactated Ringer's 1,000 ml @ 125 mls/hr Q8H IV 11/19/24 17:00 Family & Social History Family/Social History Blood Type: Unknown Rubella: unknown RPR/VDRL: Negative GBS Status: Negative HBsAG: Negative Review of Systems Constitutional: No symptom reported Ears, Nose, & Throat: No symptom reported Eyes: No symptom reported Pulmonary/Respiratory: No symptom reported Cardiovascular: No symptom reported Gastrointestinal: No symptom reported Genitourinary: No symptom reported Musculoskeletal: No symptom reported Skin: No symptom reported Psychiatric: No symptom reported Endocrine: No symptom reported Hemotologic/Lymphatic: No symptom reported OB Admission Exam Physical Exam HEENT: TMs Normal, Fontanelles Normal, Nasal Mucosa Normal, Eyes non-injected, Oropharynx Normal, PERRLA, Moist Membranes, EOMI Heart: Rhythm Normal Lungs: Clear Abdomen: Non tender Extremities: Normal Reflexes: Normal Cervical Dilatation: 4cm Effacement: 50% Station: -3 Membranes: Intact Heart Rate: 130's Accelerations: Accelerations Present Decelerations: No Decelerations Short Term Variability: Present Care Home Variability: Average (6-25) Contractions on Admission: < 5 Minutes Apart Intensity: Moderate OB Plan Plan Admitting Diagnosis: IUP AT 40WKS WITH GDM POORLY CONTROLLED NONCOMPLIANCY WITH GDM SUSPECT MACROSOMIA MORBID OBRESITY Plan: Section Other Plan: INFORMED CONSENT OBTAINED,RISKS AND COMPL OF CS D/W PT.POSSIB OF PE,DVT,BLEEDING AND INFXN D/W PT.ALL QUESTIONS ANSWERED PT FULLY UNDERSTAND WISHES TO PROCEED WITH CS Visit Coding OBGYN Date of Service: Nov 19, 2024 Billing Provider: ARISTIDES MENCHACA DO BIOMEDICAL ENGINEERING AIDE Common Visit Codes: [id number] INP/OBS CARE (HIGH) BIOMEDICAL ENGINEERING AIDE Procedure Codes: 45029-74- NON-STRESS TEST ARISTIDES MENCHACA DO Nov 19, 2024 17:37
[2024-11-19 17:39] LABS: Alkaline Phosphatase 141 U/L (46-116); Blood Urea Nitrogen 6 mg/dL (9-23); Carbon Dioxide 19 mmol/L (20-31); Chloride 108 mmol/L (98-107); INR 0.91 (0.9-1.15); Partial Thromboplastin Time 29.4 SEC (24.5-34.5); Prothrombin Time 9.7 sec (9.3-11.8)
[2024-11-19 17:42] LABS: Urine Bacteria FEW /hpf (None Seen); Urine Blood TRACE /uL (Negative); Urine Clarity Turbid (Clear); Urine Color Light-Yellow (Yellow); Urine Protein, UAD Negative (Negative); Urine Specific Gravity 1.013 (1.001-1.035); Urine Squamous Epithelial Cell FEW /hpf (<5); Urine Urobilinogen Normal (Negative); Urine WBC 23 /HPF (0-5)
[2024-11-19] MEDS ORDERED: HYDR-4072 PO (17:43)
[2024-11-19] MEDS ORDERED: IBUP-1456 PO (17:43)
[2024-11-19] MEDS ORDERED: DOCU-94 PO (17:43)
[2024-11-19] MEDS: LACT. RINGERS/OXYTOCIN 20UNITS 1,000 ML IV ONE (17:45)
[2024-11-19] MEDS: GUM (CHEWING) 1 GUM CHEW CHEW ONE (17:45)
[2024-11-19 18:09] LABS: Amphetamine Screen, Urine Neg (NEGATIVE); Barbiturate Scree,Urine Neg (NEGATIVE); Benzodiazephine Screen, Urine Neg (NEGATIVE); Cannabinoid Screen, Urine Neg (NEGATIVE); Cocaine Screen, Urine Neg (NEGATIVE); Opiate Scree,Urine Neg (NEGATIVE); Phencyclidine Screen, Urine Neg (NEGATIVE)
[2024-11-19] MEDS: CARBOPROST TROMETHAMINE 250 MCG/1ML VIAL IM ONE (18:25)
--- NOTE | 2024-11-19 18:30 | DVHOP2 ---
Operative Report DATE OF OPERATION: 11/19/24 PREOPERATIVE DIAGNOSES: Term with gdm poorly controlled,suspect macrosomia,morbid obesity,desires pcs POSTOPERATIVE DIAGNOSES: same,op SURGEON: Daisy Vasques D.O./lexi ANESTHESIOLOGIST: jose TYPE OF ANESTHESIA : spinal CONSENT: The patient was informed of the risks and benefits of the procedure. The patient was informed of the risks and benefits of the procedure. These include but are not limited to , complications of anesthesia, postoperative infection, incomplete relief of symptoms, recurrence of symptoms, damage to blood vessels, nerves and tendons, deep venous thrombosis, pulmonary embolism and possible need for repeat surgery in the future. FINDINGS: Baby [b] with Apgars of [9] and [9]. Grossly normal appearing tubes and ovaries.op,8-8 PROCEDURES: Primary low transverse section. PROCEDURE IN DETAIL: The patient was taken to the operating room. She already had an epidural in place. She was then placed in supine position with a leftward tilt. A Pfannenstiel skin incision was made 2 cm above the symphysis pubis. This incision was carried to the underlying layer of fascia. The fascia was nicked in the midline. The incision was extended laterally. The superior aspect of the fascial incision was grasped and elevated. The same procedure was done to the inferior aspect of the fascial incision. The rectus muscles were then in the midline. Peritoneum was identified and entered. Peritoneal incision was extended superiorly and inferiorly with good visualization of the bladder. Bladder blade was inserted. Vesicouterine peritoneum was identified and entered. Lower uterine segment was incised in a transverse fashion. The infant was delivered from vertex presentation. was baby [b] with Apgars [9] and [9]. Placenta was then removed manually. Uterus was exteriorized and cleared of all clots and debris. The incision was repaired using 0 Vicryl in a double-layered fashion. No b leeding was noted. Uterus was then returned to the abdomen. The gutters were cleared off all clots and debris. Peritoneum was closed using 0 Vicryl, fascia was closed using 0 Maxon, and skin was closed using ning. The patient tolerated the procedure well. She was taken to the recovery room in stable condition. ESTIMATED BLOOD LOSS: Estimated blood loss was noted to be 800 mL. Visit Coding OBGYN Date of Service: Nov 19, 2024 Billing Provider: DAISY VASQUES DO GAS SYSTEMS WORKER Common Visit Codes: [id number] INP/OBS CARE (HIGH) GAS SYSTEMS WORKER Procedure Codes: [id number] DELIVERY ONLY DAISY VASQUES DO Nov 19, 2024 18:30
--- NOTE | 2024-11-19 18:32 | POSTOP ---
Post-Operative Note Post-Operative Note Preop Diagnosis term preg suspect macrosomia,desires pcs,uncontrolled gdm Postop Diagnosis: same Operation performed pltcs Specimen baby boy,apgars 9-9,op,wt 8-8 Anesthesia: Regional Anesthesiologist: jose Blood Loss(fluid mgmt) 800ml Surgeon Aristides Vasques Antenna Machine Operator lexi Implant na Date 11/19/24 Time 18:30 Visit Coding OBGYN Date of Service: Nov 19, 2024 Billing Provider: ARISTIDES VASQUES DO STREET SPRINKLER Common Visit Codes: [id number] INP/OBS CARE (HIGH) STREET SPRINKLER Procedure Codes: 48548-KVO DELIVERY ONLY ARISTIDES VASQUES DO Nov 19, 2024 18:32
[2024-11-19] MEDS ORDERED: DexAMETHasone SOD PHOS 10MG/1ML VIAL INJ IV PRN (18:45)
[2024-11-19] MEDS ORDERED: HYDROmorphone HCL 2 MG/ML VL/or syr IV PRN (18:45)
[2024-11-19] MEDS ORDERED: hydrALAZINE HCL 20 MG/ML VL IV PRN (18:45)
[2024-11-19] MEDS ORDERED: ePHEDrine SULFATE 50 MG/ML AMP IV PRN (18:45)
[2024-11-19] MEDS ORDERED: MIDAZOLAM HCL 2MG/2ML 2ml VIAL (1mg/ml) IV PRN (18:45)
[2024-11-19] MEDS ORDERED: NALOXONE HCL 0.4 MG/ML VIAL IV PRN (18:45)
[2024-11-19] MEDS ORDERED: diphenhdrAMINE HCL 50 MG/1 ML VL IV PRN (18:45)
[2024-11-19] MEDS ORDERED: ONDANSETRON HCL 4 MG/2 ML VIAL IV PRN (18:45)
[2024-11-19 19:09] VITALS: PULSE 49; RESP 11; O2SAT 99
[2024-11-19] MEDS ORDERED: DIPHENOXYLATE W/ATROPINE 2.5 MG TAB PO PRN ×2 (19:15→19:45)
[2024-11-19] MEDS: DIPHENOXYLATE W/ATROPINE 2.5 MG TAB ONE (19:28)
[2024-11-19 20:00] VITALS: BP 131/55; PULSE 65; RESP 16; O2SAT 100
[2024-11-19 21:00] VITALS: BP 131/69; PULSE 69; RESP 15; O2SAT 99
[2024-11-19 22:00] VITALS: BP_SYST 131; BP_DIAS 55; BP_DIAS 76; PULSE 65; PULSE 67; RESP 16; RESP 18; TEMP 97.9; O2SAT 100
[2024-11-19] MEDS: LACTATED RINGER'S 1,000 ML IV SCH ×2 (22:15→22:42)
[2024-11-19] MEDS: ONDANSETRON HCL 4 MG/2 ML VIAL IV PRN (22:42)
[2024-11-19 23:00] VITALS: BP 122/68; PULSE 69; RESP 18; TEMP 97.9; O2SAT 98
[2024-11-19 23:09] LABS: Basophils # (auto) 0 10 ^3/uL (0-0.2); Basophils % (auto) 0.1 % (0.0-2.0); Eosinophils # (auto) 0 10 ^3/uL (0-0.8); Eosinophils % (auto) 0.1 % (0.0-7.0); Hematocrit 40.1 % (36.0-46.0); Hemoglobin 13.7 g/dL (12.2-16.2); Lymphocytes # (auto) 1.9 10 ^3/uL (0.4-5.4); Lymphocytes % (auto) 13.5 % (10.0-50.0); Mean Corpuscular Hemoglobin 31.3 pg (28.0-32.0); Mean Corpuscular Hgb Conc. 34.2 g/dL (32.0-36.0); Mean Corpuscular Volume 91.5 fL (80.0-100.0); Monocytes # (auto) 0.8 10 ^3/uL (0-1.3); Monocytes % (auto) 5.4 % (0.0-12.0); Neutrophils # (auto) 11.5 10 ^3/uL (1.6-8.6); Neutrophils % (auto) 80.9 % (37.0-80.0); Platelet Count (auto) 138 10^3/uL (140-450); Red Blood Cells 4.39 10^6/uL (4.0-5.20); Red Cell Distribution Width 14.3 % (11.8-14.3); White Blood Cell 14.1 10^3/uL (4.4-10.8)
[2024-11-20] VITALS (22 sets, daily range): BP systolic 104–139; BP diastolic 57–81; PULSE 62–92; RESP 14–88; TEMP 98.3–102; O2SAT 94–99
[2024-11-20] MEDS: ceFAZolin 1GM/50ML 50 ML IV SCH (01:41)
[2024-11-20] MEDS ORDERED: AMMONIA 0.33 ML INHALANT IN ONE (02:15)
[2024-11-20] MEDS: ACETAMINOPHEN IV 1000 MG/100ML (10MG/ML) IV PRN (07:08)
--- NOTE | 2024-11-20 08:29 | DVHPN2 ---
Chief Complaints Patient reports: No new complaints Nursing reports: No new complaints Objective Vitals Vital Signs Date Time Temp Pulse Resp B/P (MAP) Pulse Ox O2 Delivery O2 Flow Rate FiO2 11/20/24 07:38 80 18 96 11/20/24 07:00 100.6 104/71 (82) 100.6 11/20/24 07:00 Room Air 11/19/24 19:09 0 11/19/24 19:09 99 Medications Current Medications Medications (Trade) Dose Ordered Sig/Carlo Route PRN Reason Start Time Stop Time Status Last Admin Acetaminophen (Ofirmev) 1,000 mg [id number] PRN IV MODERATE PAIN (4-6 PAIN SCALE) 11/19/24 22:15 11/20/24 22:14 11/20/24 07:08 Cefazolin Sodium 50 ml @ 100 mls/hr Q8H IV 11/20/24 01:30 11/20/24 17:59 11/20/24 01:41 Diphenhydramine HCl (Benadryl Injection) 25 mg Q4HP PRN IV FOR ITCHING 11/19/24 18:45 Diphenoxylate HCl/ Atropine (Lomotil Tablet) 5 mg Q6HP PRN PO FOR DIARRHEA 11/19/24 19:45 Lactated Ringer's 1,000 ml @ 125 mls/hr Q8H IV 11/19/24 17:00 11/19/24 22:42 Ondansetron HCl (Zofran) 4 mg Q4HP PRN IV NAUSEA / VOMITING 11/19/24 17:45 11/19/24 22:42 Lungs: Normal Cardiovascular: Normal Abdominal: Soft Extremities: Normal Studies Laboratory Tests 11/19/24 22:50 11/19/24 17:00 Test 11/19/24 17:00 Range/Units Serum Glucose 83 74-106 mg/dL Ass/Plan Assessment s/p pcs Plan supportive care Visit Coding OBGYN Date of Service: Nov 20, 2024 Billing Provider: ARISTIDES MENCHACA DO CRADLE SLIDE MAKER Common Visit Codes: [id number] INP/OBS CARE(HIGH) ARISTIDES MENCHACA DO Nov 20, 2024 08:29
[2024-11-20 10:15] LABS: Basophils # (auto) 0 10 ^3/uL (0-0.2); Eosinophils # (auto) 0 10 ^3/uL (0-0.8); Hematocrit 37.5 % (36.0-46.0); Hemoglobin 13.1 g/dL (12.2-16.2); Lymphocytes # (auto) 1.1 10 ^3/uL (0.4-5.4); Lymphocytes % (auto) 9.8 % (10.0-50.0); Mean Corpuscular Hemoglobin 31.6 pg (28.0-32.0); Mean Corpuscular Hgb Conc. 34.8 g/dL (32.0-36.0); Mean Corpuscular Volume 90.8 fL (80.0-100.0); Monocytes # (auto) 0.4 10 ^3/uL (0-1.3); Monocytes % (auto) 3.7 % (0.0-12.0); Neutrophils # (auto) 9.7 10 ^3/uL (1.6-8.6); Neutrophils % (auto) 86.5 % (37.0-80.0); Platelet Count (auto) 133 10^3/uL (140-450); Red Blood Cells 4.13 10^6/uL (4.0-5.20); Red Cell Distribution Width 14.3 % (11.8-14.3); White Blood Cell 11.2 10^3/uL (4.4-10.8)
[2024-11-20] MEDS ORDERED: HYDROcodone-ACET 5/325MG TAB PO PRN (16:15)
[2024-11-20] MEDS ORDERED: BISACODYL 10 MG RECT SUPP PR PRN (16:15)
[2024-11-20] MEDS ORDERED: GENTAMICIN PER PHARMACY 0 ML IV SCH (16:15)
[2024-11-20] MEDS: IBUPROFEN 800 MG TAB PO PRN (16:38)
[2024-11-20] MEDS: HYDROcodone-ACET 5/325MG TAB PO PRN (16:39)
[2024-11-20] MEDS: GENTAMICIN SULFATE 400 MG in D5W 5% 100 ML IV ONE (17:25)
[2024-11-20] MEDS: PIPERACILLIN-TAZOB 3.375GM 100 ML IV SCH (18:53)
[2024-11-20] MEDS: SIMETHICONE 80 MG CHEWABLE TABLET PO SCH (18:58)
[2024-11-20] MEDS: LACTATED RINGER'S 1,000 ML IV SCH (19:45)
[2024-11-20] MEDS: DOCUSATE SOD 100 MG CAP PO SCH (22:00)
[2024-11-21] VITALS (7 sets, daily range): BP systolic 114–139; BP diastolic 71–87; PULSE 65–96; RESP 16–18; TEMP 97.6–100.7; O2SAT 95–98
--- NOTE | 2024-11-21 06:18 | DVHPN2 ---
Progress Note Date Seen: Nov 21, 2024 Subjective S: Lochia minimal. Clear liquid diet well tolerated. Ambulating and voiding w/o feeling dizzy or lightheaded. Pain relieved with oral analgesics. not passing flatus or BM yet. w/o problem vital signs Vital Sign Date Time Temp Pulse Resp B/P (MAP) Pulse Ox O2 Delivery O2 Flow Rate FiO2 11/21/24 05:50 100.7 100.7 11/21/24 03:00 65 18 114/71 (85) 98 11/20/24 19:00 Room Air 11/19/24 19:09 0 11/19/24 19:09 99 Total Intake and Output 11/20/24 11/20/24 11/21/24 15:00 23:00 07:00 Output Total 2300 ml 900 ml 1250 ml Balance -2300 ml -900 ml -1250 ml medications Current Medications Medications Dose Ordered Sig/Carlo Route Start Time Stop Time Status Last Admin Dose Admin Ondansetron HCl 4 mg Q4HP PRN IV 11/19/24 17:45 11/19/24 22:42 4 MG Diphenhydramine HCl 25 mg Q4HP PRN IV 11/19/24 18:45 Diphenoxylate HCl/ Atropine 5 mg Q6HP PRN PO 11/19/24 19:45 Piperacillin Sod/ Tazobactam Sod 100 ml @ 25 mls/hr Q6HR IV 11/20/24 18:00 11/21/24 01:06 25 MLS/HR Docusate Sodium 100 mg Q12HR PO 11/20/24 22:00 Dimethicone 80 mg QID PO 11/20/24 18:00 11/21/24 05:46 80 MG Bisacodyl 10 mg DAILYP PRN AZ 11/20/24 16:15 Ibuprofen 800 mg Q8HP PRN PO 11/20/24 16:15 11/20/24 16:38 800 MG Acetaminophen/ Hydrocodone Bitart 1 tab Q4HPRN PRN PO 11/20/24 16:15 Acetaminophen/ Hydrocodone Bitart 2 tab Q4HPRN PRN PO 11/20/24 16:15 11/21/24 05:59 2 TAB Lactated Ringer's 1,000 ml @ 70 mls/hr [id number] IV 11/20/24 19:30 11/20/24 19:45 70 MLS/HR laboratory and microbiology Laboratory Tests 11/20/24 09:33 11/19/24 17:00 Test 11/19/24 17:00 Range/Units Serum Glucose 83 74-106 mg/dL Objective A&O x3 NAD. Febrile, other VSS Chest: heart and lung sounds normal. Breasts: Nipples intact w/o cracks or soreness Abdomen: hypoactive bowel sound, fundus firm @ U Lower abdominal Incision site with Sylke dressing on, same clean, dry and intact. No edema, erythema or induration Extremities: no edema or tenderness Lochia - minimal Assessment/Plan A/P: 29yo now Post operative & ppd #2 s/p Primary Section Fever Blood Type: A Rh: Positive Breast feeding Rubella Immune CBC w diff Continue antibiotics and IV fluid Pain control with oral medications Bowel regimen: Increase ambulation, fluid intake and fiber in diet, Laxative PRN PP BCM Plan: undecided Plan discussed with: Patient, Spouse Visit Coding OBGYN Date of Service: Nov 21, 2024 Billing Provider: FORREST VERA CNM SINGING WAITER OR WAITRESS Common Visit Codes: [id number] INP/OBS CARE(HIGH) FORREST VERA CNM Nov 21, 2024 06:18
[2024-11-21 07:09] LABS: Basophils # (auto) 0 10 ^3/uL (0-0.2); Basophils % (auto) 0.1 % (0.0-2.0); Eosinophils # (auto) 0 10 ^3/uL (0-0.8); Hemoglobin 12.3 g/dL (12.2-16.2); Mean Corpuscular Hgb Conc. 34.1 g/dL (32.0-36.0); Monocytes # (auto) 0.6 10 ^3/uL (0-1.3); Monocytes % (auto) 4.5 % (0.0-12.0); Neutrophils # (auto) 10.9 10 ^3/uL (1.6-8.6); Neutrophils % (auto) 87.4 % (37.0-80.0); Platelet Count (auto) 147 10^3/uL (140-450); Red Blood Cells 3.95 10^6/uL (4.0-5.20); Red Cell Distribution Width 14.4 % (11.8-14.3); White Blood Cell 12.4 10^3/uL (4.4-10.8)
[2024-11-21 07:31] LABS: Alanine Aminotransferase 13 U/L (7-40); Albumin 3.6 g/dL (3.2-4.8); Alkaline Phosphatase 98 U/L (46-116); Anion Gap 10 (5-15); Aspartate Aminotransferase 30 U/L (13-40); BUN/Creatinine Ratio 12.8 (10.0-20.0); Bilirubin, Total 0.5 mg/dL (0.2-1.0); Blood Urea Nitrogen 6 mg/dL (9-23); Carbon Dioxide 24 mmol/L (20-31); Chloride 107 mmol/L (98-107); Glucose 89 mg/dL (74-106); Potassium 3.9 mmol/L (3.5-5.1); Sodium 141 mmol/L (136-145)
[2024-11-21] MEDS ORDERED: CEPH500T PO (08:04)
--- NOTE | 2024-11-21 08:04 | DVHPN2 ---
Chief Complaints Patient reports: No new complaints Nursing reports: No new complaints Objective Vitals Vital Signs Date Time Temp Pulse Resp B/P (MAP) Pulse Ox O2 Delivery O2 Flow Rate FiO2 11/21/24 07:00 97.8 85 18 135/78 (97) 95 97.8 11/20/24 19:00 Room Air 11/19/24 19:09 0 11/19/24 19:09 99 Medications Current Medications Medications (Trade) Dose Ordered Sig/Carlo Route PRN Reason Start Time Stop Time Status Last Admin Acetaminophen/ Hydrocodone Bitart ([place] 5/325MG Tab) 1 tab Q4HPRN PRN PO FOR PAIN 1-6 11/20/24 16:15 Acetaminophen/ Hydrocodone Bitart ([place] 5/325MG Tab) 2 tab Q4HPRN PRN PO FOR PAIN 7-11/20/24 16:15 11/21/24 05:59 Bisacodyl (Dulcolax Suppository) 10 mg DAILYP PRN ID FOR CONSTIPATION 11/20/24 16:15 Dimethicone (Mylicon Tab) 80 mg QID PO 11/20/24 18:00 11/21/24 05:46 Docusate Sodium (Colace Capsule) 100 mg Q12HR PO 11/20/24 22:00 Ibuprofen (Motrin Tablet) 800 mg Q8HP PRN PO BREAKTHROUGH PAIN 11/20/24 16:15 11/20/24 16:38 Lactated Ringer's 1,000 ml @ 70 mls/hr [id number] IV 11/20/24 19:30 11/20/24 19:45 Piperacillin Sod/ Tazobactam Sod 100 ml @ 25 mls/hr Q6HR IV 11/20/24 18:00 11/21/24 06:39 Lungs: Normal Cardiovascular: Normal Abdominal: Soft Extremities: Normal Studies Laboratory Tests 11/21/24 07:01 Test 11/21/24 07:01 Range/Units Serum Glucose 89 74-106 mg/dL Ass/Plan Assessment s/p pcs Plan SUPPORTIVE Care Visit Coding OBGYN Date of Service: Nov 21, 2024 Billing Provider: ARISTIDES MENCHACA DO DIRECTOR FEDERAL Common Visit Codes: [id number] INP/OBS CARE(HIGH) ARISTIDES MENCHACA DO Nov 21, 2024 08:04
--- NOTE | 2024-11-21 10:55 | DVH ---
CHEST RADIOGRAPH Indication: high temp Technique: Single frontal view of the chest was obtained Comparison: None FINDINGS: Lines and Tubes: None Lungs: No focal consolidation. Pleura: No effusion. No pneumothorax. Cardiomediastinal contours: Cardiomegaly. Bones: No acute osseous abnormality. IMPRESSION: 1. No acute pulmonary disease. 2. Cardiomegaly.
[2024-11-22 03:00] VITALS: BP 118/78; PULSE 73; RESP 16; TEMP 98.1; O2SAT 97
--- NOTE | 2024-11-22 03:09 | DVHPN2 ---
Progress Note Date Seen: Nov 22, 2024 Subjective S: Lochia minimal. Advancing diet well tolerated. Ambulating and voiding well w/o feeling dizzy or lightheaded. Pain relieved with oral analgesics. Not passing flatus and no BM yet but burping. w/o problem vital signs Vital Sign Date Time Temp Pulse Resp B/P (MAP) Pulse Ox O2 Delivery O2 Flow Rate FiO2 11/21/24 23:00 98.3 80 16 132/87 (102) 97 98.3 11/21/24 18:45 Room Air medications Current Medications Medications Dose Ordered Sig/Carlo Route Start Time Stop Time Status Last Admin Dose Admin Ondansetron HCl 4 mg Q4HP PRN IV 11/19/24 17:45 11/19/24 22:42 4 MG Diphenhydramine HCl 25 mg Q4HP PRN IV 11/19/24 18:45 Diphenoxylate HCl/ Atropine 5 mg Q6HP PRN PO 11/19/24 19:45 Piperacillin Sod/ Tazobactam Sod 100 ml @ 25 mls/hr Q6HR IV 11/20/24 18:00 11/21/24 23:51 25 MLS/HR Docusate Sodium 100 mg Q12HR PO 11/20/24 22:00 11/21/24 22:08 100 MG Dimethicone 80 mg QID PO 11/20/24 18:00 11/21/24 22:07 80 MG Bisacodyl 10 mg DAILYP PRN VT 11/20/24 16:15 Ibuprofen 800 mg Q8HP PRN PO 11/20/24 16:15 11/20/24 16:38 800 MG Acetaminophen/ Hydrocodone Bitart 1 tab Q4HPRN PRN PO 11/20/24 16:15 Acetaminophen/ Hydrocodone Bitart 2 tab Q4HPRN PRN PO 11/20/24 16:15 11/21/24 23:53 2 TAB Lactated Ringer's 1,000 ml @ 70 mls/hr [id number] IV 11/20/24 19:30 11/21/24 17:44 70 MLS/HR laboratory and microbiology Laboratory Tests 11/21/24 07:01 Test 11/21/24 07:01 Range/Units Serum Glucose 89 74-106 mg/dL Objective O: A&O x3 NAD. Afebrile at this time, VSS Chest: heart and lung sounds normal. Breasts: Nipples intact w/o cracks or soreness Abdomen: normal BS, soft, non-tender, no rebound or guarding, fundus firm @ U- 1, Lower abdominal Incision site with Sylke dressing on, same clean, dry and intact. No edema, erythema or induration Extremities: no edema or tenderness Lochia - minim Assessment/Plan 29yo now Post operative & ppd #3 s/p Primary Section for failed induction; doing fairly well. Post operative / fever Blood Type: A Rh: Positive Breast feeding and Formula feeding Rubella: Immune Pain control with oral medications Continue antibiotics Bowel regimen: Increase fluid intake and fiber in diet, Laxative PRN PP BCM Plan: undecided Supportive care Plan discussed with: Patient, Spouse, Other (Patient's parents) Visit Coding OBGYN Date of Service: Nov 22, 2024 Billing Provider: FORREST VERA CNM FINAL [employer] PAINTER Common Visit Codes: [id number] INP/OBS CARE(HIGH) FORREST VERA CNM Nov 22, 2024 03:09
[2024-11-22 06:45] VITALS: BP 130/73; PULSE 84; PULSE 85; RESP 16; RESP 18; TEMP 99.1; O2SAT 95; O2SAT 98
[2024-11-22 11:00] VITALS: BP 117/72; PULSE 90; RESP 18; TEMP 98.6; O2SAT 98
[2024-11-22 14:45] VITALS: BP 128/76; PULSE 99; RESP 18; TEMP 98.4; O2SAT 100
--- NOTE | 2024-11-23 21:23 | DVHDS2 ---
Obstetrics Discharge Summary Obstetrics Discharge Summary Date of Admission: Nov 19, 2024 Date of Discharge: Nov 22, 2024 Reason For Admission: Section (Primary) Procedures: NST Intrapartum Procedures: (Low Cervical Transverse) Procedures: None Operative Complicat: None Discharge Diagnosis: Term -Delivered Discharge Information: Activity (Other), Diet (Routine), Medications (Name:), Instructions (Routine), Discharge to (Home), Discarge date (-) Visit Coding OBGYN Date of Service: Nov 22, 2024 Billing Provider: ARISTIDES MENCHACA DO ANTISQUEAK APPLIER Common Visit Codes: [id number]/OBS DISCH DAY >30MIN ANTISQUEAK APPLIER Procedure Codes: [id number] DELIVERY ONLY ARISTIDES MENCHACA DO Nov 23, 2024 21:23
== END 2024-11-22 17:58 | disposition home or self-care (01) | DRG 540 ==
LOC: LDRP 14:33 → UNDOADMOB 14:33 → OBSVTOIN 14:45 → LDRP 14:45
PROVIDERS: ADMIT Obstetrics & Gynecology; ATTEND Obstetrics & Gynecology
PROC: 10D00Z1 Extraction of Products of Conception, Low, Open Approach (ICD-10-PCS; principal; 2024-11-19 17:37)
DX: O24.429 Gestational diabetes mellitus in childbirth, unspecified control (principal); O86.4 Pyrexia of unknown origin following delivery; O99.214 Obesity complicating childbirth; E66.01 Morbid (severe) obesity due to excess calories; Z37.0 Single live birth; Z3A.40 40 weeks gestation of pregnancy; O36.63X0 Maternal care for excessive fetal growth, third trimester, not applicable or unspecified
CPT/HCPCS: 36415; 59025; 71045; 76819; 80053; 80307; 81001; 81002; 82948; 82962; 85025; 85610; 85730; 86780; 86850; 86900; 86901; 87040; 94760; 94762; 96360; 96361; 96365; 96366; 96374; G0378; J0131; J2250; J2405; J2543; J7060